=== PATIENT | female | born 1980 | race American Indian/Alaskan Native ===

== ENCOUNTER 2018-02-16 17:56 | Emergency (ER) | payer OTHER ==
--- NOTE | 2018-02-16 18:04 | C.PDOC ---
History Of Present Illness 37yo female, no past medical history, comes to ER with complaints of headache and dizziness, present since 3PM today. Patient states she also had numbness and tingling in her palms which has now resolved. She reports associated nausea , and states the headache and dizziness has been improving. Patient otherwise denies any head trauma, vomiting, weakness, chest pain, shortness of breath, abdominal pain or diarrhea. She offers no other complaints. PMD: None Time Seen by Provider: 02/16/18 18:03 Chief Complaint (Nursing): Headache History Per: Patient History/Exam Limitations: no limitations Onset/Duration Of Symptoms: Hrs Current Symptoms Are (Timing): Still Present Quality: "Pain" Additional History Per: Patient Past Medical History Reviewed: Historical Data, Nursing Documentation, Vital Signs Vital Signs: Last Vital Signs Temp 98.3 F 02/16/18 22:26 Pulse 75 02/16/18 22:26 Resp 17 02/16/18 22:26 BP 122/79 02/16/18 22:26 Pulse Ox 97 02/16/18 22:26 - Medical History PMH: No Chronic Diseases Surgical History: No Surg Hx Family History: States: No Known Family Hx - Social History Hx Alcohol Use: No Hx Substance Use: No - Immunization History Hx Tetanus Toxoid Vaccination: No Hx Influenza Vaccination: No Hx Pneumococcal Vaccination: No Review Of Systems Except As Marked, All Systems Reviewed And Found Negative. Constitutional: Negative for: Fever, Chills Cardiovascular: Negative for: Chest Pain Respiratory: Negative for: Shortness of Breath Gastrointestinal: Positive for: Nausea. Negative for: Vomiting Neurological: Positive for: Headache, Dizziness. Negative for: Weakness, Numbness Physical Exam - Physical Exam Appears: Non-toxic, No Acute Distress Skin: Normal Color, Warm Head: Atraumatic, Normacephalic Eye(s): bilateral: Normal Inspection, PERRL, EOMI Oral Mucosa: Moist Neck: Normal ROM, Supple Chest: Symmetrical Cardiovascular: Rhythm Regular Respiratory: Normal Breath Sounds Gastrointestinal/Abdominal: Normal Exam, Soft, No Tenderness Back: Normal Inspection Extremity: Normal ROM, No Pedal Edema, Other (5/5 motor strength all extremities ) Neurological/Psych: Oriented x3, Normal Speech, Normal Cognition, Normal Motor, Normal Sensation Other Neurological Findings: No Facial Palsy, No Tongue Deviation Extremity: Right: No Drift, Left: No Drift, Upper: No Drift, Lower: No Drift ED Course And Treatment - Laboratory Results Result Diagrams: 02/16/18 19:29 02/16/18 19:29 O2 Sat by Pulse Oximetry: 96 (RA) Pulse Ox Interpretation: Normal - CT Scan/US CT Head w/o contrast Other Rad Studies (CT/US): Read By Radiologist, Radiology Report Reviewed CT/US Interpretation: FINDINGS: Brain: Unremarkable. No hemorrhage. No significant white matter disease. No edema. Normal. piedra white matter interfaces are present. Ventricles: Unremarkable. No ventriculomegaly. Bones/ joints: Unremarkable. No acute fracture. Soft tissues: Unremarkable. Sinuses: Unremarkable as visualized. No acute sinusitis. Mastoid air cells: Unremarkable as visualized. No mastoid effusion. IMPRESSION: Normal head/ brain CT. Medical Decision Making Medical Decision Making: Well appearing 37 yr old F presents w/ HOLLAND, not worst of life and not sudden in onset, without fever, FND or meningeal signs. She notes that she had some numbness in her R hand which was only momentary but denies any on exam in the ED. Given start time of HOLLAND and within [address] to rule out SAH. 2147 Imaging unremarkable. Labs reviewed, patient with elevated LFT's. Informed pt regard LFTS And need to followup. Abdominal exam is unremarkable. Non-TTP and pt denies any GI or complaints. No CP or shoulder pain. No referred R shoulder pain. On reassessment, patient reports feeling much better and is ambulating well. Neuro exam is normal. Patient denies any complaints of abdominal pain. Stable for discharge home and instructed to follow up with neurologist as well as GI specialist. Disposition - Disposition Referrals: [facility] [Outside] Hussein Miller MD [Staff Provider] - Erwin De Jesus MD [Staff Provider] - Disposition: HOME/ ROUTINE Disposition Time: 22:00 Condition: GOOD Additional Instructions: FOLLOW UP REGARDING YOUR ELEVATED LIVER ENZYMES. SEE A NEUROLOGIST FOR YOUR HEADACHE AND VERTIGO. MICKI MATA, thank you for letting us take care of you today. Your provider was Harry Hobson and you were treated for SICK. The emergency medical care you received today was directed at your acute symptoms. If you were prescribed any medication, please fill it and take as directed. It may take several days for your symptoms to resolve. Return to the Emergency Department if your symptoms worsen, do not improve, or if you have any other problems. Please contact your doctor or call one of the physicians/clinics you have been referred to that are listed on the Patient Visit Information form that is included in your discharge packet. Bring any paperwork you were given at discharge with you along with any medications you are taking to your follow up visit. Our treatment cannot replace ongoing medical care by a primary care provider outside of the emergency department. Thank you for allowing the [email or web address] team to be part of your care today. If you had an X-Ray or CT scan: A Radiologist will review the ED reading if any change in treatment is needed we will contact you. If you had a blood, urine, or wound culture: It will take several days for the results, if any change in treatment is needed we will contact you. If you had an STI test: It will take 48 hours for the results. Please call after 1 week if you have not heard back. Prescriptions: Meclizine [Antivert] 12.5 mg PO QAM PRN 3 Days #3 tab PRN Reason: Other Instructions: Headache, Adult, Liver Function Test, Migraine Headaches in Adults Forms: [employer] ([place]ish) - Clinical Impression Clinical Impression: Headache, Migraine - Scribe Statement The provider has reviewed the documentation as recorded by the Darcy Mccord Provider Attestation: All medical record entries made by the Darcy were at my direction and personally dictated by me. I have reviewed the chart and agree that the record accurately reflects my personal performance of the history, physical exam, medical decision making, and the department course for this patient. I have also personally directed, reviewed, and agree with the discharge instructions and disposition.
[2018-02-16] MEDS ORDERED: Sodium Chloride 0.9% 1,000 ML IV SCH (19:15)
[2018-02-16] MEDS ORDERED: Sodium Chloride 0.9% 1,000 ML ONE (19:16)
[2018-02-16 19:40] LABS: HEMOGLOBIN 12.6 g/dL (11.0-16.0); MEAN CELL VOLUME 87.8 fL (81.0-99.0); MEAN CORPUSCULAR HEMOGLOBIN 29.3 pg (27.0-31.0); MEAN CORPUSCULAR HGB CONC 33.3 g/dL (33.0-37.0); MEAN PLATELET VOLUME 8.5 fL (7.2-11.7); RBC 4.31 Mil/uL (3.80-5.20); RED CELL DISTRIBUTION WIDTH 13.7 % (11.5-14.5); WHITE BLOOD COUNT 11.2 K/uL (4.8-10.8)
[2018-02-16 19:57] LABS: ALBUMIN 3.6 g/dL (3.5-5.0); ALT/SGPT 73 U/L (9-52); AST/SGOT 98 U/L (14-36); BLOOD UREA NITROGEN 8 mg/dL (7-17); CALCIUM 8.9 mg/dl (8.6-10.4); GFR NON-AFRICAN AMERICAN > 60
[2018-02-16 22:28] VITALS: BP 122/79; PULSE 75; RESP 17; TEMP 98.3
--- NOTE | 2018-02-17 09:56 | CT ---
Date of service: 02/16/2018 PROCEDURE: CT HEAD WITHOUT CONTRAST. HISTORY: Headache COMPARISON: None available. TECHNIQUE: Axial computed tomography images were obtained through the head/brain without intravenous contrast. Radiation dose: Total exam DLP = 1067.53 mGy-cm. This CT exam was performed using one or more of the following dose reduction techniques: Automated exposure control, adjustment of the mA and/or kV according to patient size, and/or use of iterative reconstruction technique. FINDINGS: HEMORRHAGE: No intracranial hemorrhage. BRAIN: Mix-white matter differentiation is preserved. There is no mass, mass effect or abnormal extra-axial fluid collection. There is no territorial infarction. The midline sagittal structures are normal. VENTRICLES: The ventricles are normal in size, shape and configuration. CALVARIUM: Unremarkable. PARANASAL SINUSES: Predominantly clear. MASTOID AIR CELLS: Predominantly clear. OTHER FINDINGS: None. IMPRESSION: No acute intracranial abnormality. A preliminary report was provided by [facility] services.
--- NOTE | 2018-02-17 17:57 | CARD ---
APPROVED REPORT Date of service: 02/16/2018 EKG Measurement Heart [id number] <Conclusion> Normal sinus rhythm Normal ECG
[2018-02-17 20:05] VITALS: O2SAT 96
== END 2018-02-16 22:26 | disposition home or self-care (01) ==
LOC: C.ER 17:56
DX: G43.909 Migraine, unspecified, not intractable, without status migrainosus (principal)
CPT/HCPCS: 70450; 80053; 85027; 93005; 96374; 96375; 99284; J1885; J2765; J7030